=== PATIENT | female | born 1960 | race Caucasian/White ===

== ENCOUNTER 2020-03-03 17:43 | Emergency (ER) | payer OTHER, MEDICAID ==
[~2020-03-03] VITALS: Ht 154.9 cm; Wt 52.2 kg
[2020-03-03] MEDS ORDERED: IV NORMAL SALINE 1000 ML BAG IV ONE (18:00)
[2020-03-03] MEDS ORDERED: PROP10TA10 PO (18:03)
[2020-03-03] MEDS ORDERED: ONDA-104 PO (18:03)
[2020-03-03] MEDS ORDERED: LAMO25TA5 PO (18:03)
[2020-03-03] MEDS ORDERED: GABA600T12 PO (18:03)
[2020-03-03] MEDS ORDERED: HYDR-501 PO (18:03)
[2020-03-03] MEDS ORDERED: TOPI200T PO (18:03)
[2020-03-03] MEDS ORDERED: FLUO10CA29 PO (18:03)
[2020-03-03 18:33] LABS: ALANINE AMINOTRANSFERASE 23 U/L (14-59); ALKALINE PHOSPHATASE 54 U/L (50-136); ASPARTATE AMINOTRANSFERASE 14 U/L (15-37); BILIRUBIN,DIRECT 0.1 mg/dL (0.0-0.2); BILIRUBIN,TOTAL 0.2 mg/dL (0.2-1.0); CARBON DIOXIDE 26 mmol/L (21-32); CHLORIDE 107 mmol/L (98-107); CREATININE 0.8 mg/dL (0.6-1.3); GLUCOSE 87 mg/dL (74-106); POTASSIUM 3.4 mmol/L (3.5-5.1); TOTAL PROTEIN, SERUM 6.9 g/dL (6.4-8.2); UREA NITROGEN, BLOOD 11 mg/dL (7-18)
[2020-03-03 18:36] LABS: ETHANOL 335 MG/DL (0-0)
[2020-03-03 18:39] LABS: ACETAMINOPHEN < 2.0 ug/mL (10-30)
[2020-03-03 18:44] LABS: BASOPHILS % (AUTO) 0.9 % (0.0-2.0); EOSINOPHILS # (AUTO) 0.1 K/uL (0.0-0.7); EOSINOPHILS % (AUTO) 2.5 % (0.0-7.0); HEMATOCRIT 36.6 % (31.2-41.9); HEMOGLOBIN 12.7 g/dL (10.9-14.3); LYMPHOCYTES # (AUTO) 2.4 K/uL (20.0-40.0); LYMPHOCYTES % (AUTO) 45.9 % (20.5-51.5); MEAN CORPUSCULAR HEMOGLOBIN 32.7 uug (24.7-32.8); MEAN CORPUSCULAR HGB CONC 35 g/dL (32.3-35.6); MEAN CORPUSCULAR VOLUME 94.1 fL (75.5-95.3); MONOCYTES # (AUTO) 0.3 K/uL (2.0-10.0); MONOCYTES % (AUTO) 4.8 % (0.0-11.0); NEUTROPHILS # (AUTO) 2.4 K/uL (1.8-8.9); NEUTROPHILS % (AUTO) 45.9 % (38.5-71.5); PLATELET COUNT (AUTO) 227 K/uL (179-408); RED BLOOD CELL COUNT(AUTO) 3.89 MIL/uL (3.63-4.92); WHITE BLOOD COUNT (AUTO) 5.3 K/uL (3.8-11.8)
--- NOTE | 2020-03-03 18:44 | NUR ---
Patient is seen ambulating around ER hallway with brisk steady gait & verbalizing that she wants to leave. notified.
--- NOTE | 2020-03-03 18:53 | NUR ---
Patient repeatedly keeps trying to leave the ER. Dr Marks is aware. Patient can sign AMA per Dr Marks. Managing Editor is now here.
--- NOTE | 2020-03-03 18:56 | NUR ---
Patient now decides to stay after offering the AMA form. MD notified. Urine drug screen pending.
[2020-03-03 18:57] LABS: *BILIRUBIN,URIN NEGATIVE (NEGATIVE); *BLOOD, URINE NEGATIVE (NEGATIVE); *CLARITY,URINE CLEAR (CLEAR); *COLOR,URINE YELLOW (YELLOW); *KETONES,URINE NEGATIVE (NEGATIVE); *UROBILINOGEN,URINE 0.2 E.U./dl (NORMAL); LEUKOCYTE ESTERASE ,URINE TRACE (NEGATIVE); NITRITE, URINE NEGATIVE (NEGATIVE); UGLUCOSE NEGATIVE (NEGATIVE)
--- NOTE | 2020-03-03 18:59 | NUR ---
Hands off report given to FRANCIS Martinez.
[2020-03-03 19:04] LABS: *AMPHETAMINE, URINE NEGATIVE (NEGATIVE); *CANNABINOID, URINE NEGATIVE (NEGATIVE); *COCCAINE, URINE NEGATIVE (NEGATIVE); *OPIATE, URINE NEGATIVE (NEGATIVE); *PHENCYCLIDINE SCREEN,URINE NEGATIVE (NEGATIVE)
--- NOTE | 2020-03-03 19:54 | NUR ---
Keya from [facility] states she will have physician call for panel
--- NOTE | 2020-03-03 21:15 | NUR ---
Gunjan from [facility] called back with transfer info. Patient will be going to [facility]. Accepting MD is Melba Awad Call for report .
--- NOTE | 2020-03-03 21:59 | NUR ---
Report given to FRANCIS Hurtado at [facility] ED. [id number] is here to transport patient. Patient in stable condition.
[2020-03-03 22:32] LABS: BACTERIA,URINE NONE SEEN /HPF (NONE SEEN); RBC,URINE 0-3 /HPF (0-3); SQUAMOUS EPITHELIAL CELL,UR FEW /HPF (NONE SEEN)
== END 2020-03-03 22:01 | disposition short-term general hospital (02) ==
LOC: ER 17:45
DX: F10.229 Alcohol dependence with intoxication, unspecified (principal); Y90.8 Blood alcohol level of 240 mg/100 ml or more; F31.9 Bipolar disorder, unspecified; R56.9 Unspecified convulsions; Z79.899 Other long term (current) drug therapy
CPT/HCPCS: 36415; 85025; A4663; G0480; J7030

== ENCOUNTER 2022-08-07 16:35 | Emergency (ER) | payer OTHER ==
[~2022-08-07] VITALS: Ht 152.4 cm; Wt 49.9 kg
[~2022-08-07 16:35] MED LIST: FLUO10CA29 PO; GABA600T12 PO; HYDR-501 PO; LAMO25TA5 PO; ONDA-104 PO; PROP10TA10 PO; TOPI200T PO
[2022-08-07] MEDS ORDERED: IV NORMAL SALINE 1000 ML BAG IV ONE (17:00)
[2022-08-07 17:03] LABS: HEMATOCRIT 39.8 % (31.2-41.9); MEAN CORPUSCULAR HEMOGLOBIN 34.2 uug (24.7-32.8); MEAN CORPUSCULAR VOLUME 102.9 fL (75.5-95.3); PLATELET COUNT (AUTO) 261 K/uL (179-408)
[2022-08-07 17:32] LABS: *AMPHETAMINE, URINE NEGATIVE (NEGATIVE); *CANNABINOID, URINE NEGATIVE (NEGATIVE); *COCCAINE, URINE NEGATIVE (NEGATIVE); *PHENCYCLIDINE SCREEN,URINE NEGATIVE (NEGATIVE)
[2022-08-07 17:38] LABS: CARBON DIOXIDE 27 mmol/L (21-32); CHLORIDE 107 mmol/L (98-107); CREATININE 0.6 mg/dL (0.6-1.3); GLUCOSE 142 mg/dL (74-106); POTASSIUM 3.6 mmol/L (3.5-5.1); UREA NITROGEN, BLOOD 9 mg/dL (7-18)
--- NOTE | 2022-08-07 18:36 | NUR ---
Patient discharged to home in stable condition. Written and verbal after care instructions given. Patient verbalizes understanding of instructions. IV removed. Stressed follow up or return to ER for worsening s/s.
[2022-08-07 19:37] VITALS: BP 112/70
== END 2022-08-07 18:40 | disposition home or self-care (01) ==
LOC: ER 16:41
DX: R55 Syncope and collapse (principal); R07.89 Other chest pain; F10.129 Alcohol abuse with intoxication, unspecified; Z88.0 Allergy status to penicillin; Z79.899 Other long term (current) drug therapy; Y90.8 Blood alcohol level of 240 mg/100 ml or more
CPT/HCPCS: 80048; 82962; 85025; 84484; 36415; 93005; 71045; 99285; 96360; 80320; 80307; J7040 ×2; A4663; G0480